=== PATIENT | male | born 1980 | race American Indian/Alaskan Native ===

== ENCOUNTER 2021-05-27 06:43 | Emergency (ER) | payer BC ==
[~2021-05-27] VITALS: Ht 175.3 cm; Wt 86.4 kg
[~2021-05-27 06:43] MED LIST: DOXYCYCLINE HY100 MG PO; NORCO 325 MG-51 TAB PO
[2021-05-27 06:50] VITALS: TEMP 97.4
[2021-05-27 08:48] VITALS: BP 126/77; PULSE 48
== END 2021-05-27 08:48 | disposition home or self-care (01) ==
LOC: COL.ER 06:43
DX: M79.601 Pain in right arm (principal)
CPT/HCPCS: J1885